=== PATIENT | female | born 1945 | race Hispanic/Latino ===

== ENCOUNTER 2024-09-20 09:05 | Observation (INO) | payer MEDICARE ==
[~2024-09-20] VITALS: Ht 167.6 cm; Wt 92.6 kg
[~2024-09-20 09:05] MED LIST: AMLO-257 PO; ASPI-556 PO; ATOR40TA71 PO
[2024-09-20 09:43] LABS: IMMATURE GRANULOCYTE ABSOLUTE 0.03 K/uL (0-1); NUCLEATED RED BLOOD CELLS 0.0 % (0.0-0.19); PLATELET COUNT (AUTO) 171 K/uL (130-400); RED BLOOD CELL COUNT(AUTO) 4.18 MIL/uL (4.00-5.50); RED CELL DISTRIBUTION WIDTH 14.0 % (11.0-15.5); WHITE BLOOD COUNT (AUTO) 7.7 K/uL (4.8-10.8)
[2024-09-20 10:03] LABS: CREATININE 1.0 mg/dL (0.5-1.0); GLOMERULAR FILTR. RATE CALC 57.0 mL/min (>90); GLUCOSE,RANDOM 186.0 mg/dL (70-105); SODIUM SERUM 143.0 mmol/L (136-145); UREA NITROGEN, BLOOD 22.0 mg/dL (7-18)
[2024-09-20 10:04] LABS: APPEARANCE,URINE TURBID (CLEAR); GLUCOSE, URINE (UA) NEGATIVE (NEGATIVE); LEUKOCYTE ESTERASE ,URINE 500 Leu/uL (NEGATIVE); NITRATE,URINE NEGATIVE (NEGATIVE); OCCULT BLOOD,URINE LARGE (NEGATIVE)
[2024-09-20 10:08] LABS: ASPARTATE AMINOTRANSFERASE 24.0 U/L (10-37); TOTAL PROTEIN, SERUM 7.8 g/dL (6.0-8.3)
[2024-09-20 10:11] LABS: ADD UA MICROSCOPIC YES
[2024-09-20 10:18] LABS: NON-SQUAMOUS EPITHELIAL CELL 3 /HPF (0-2); SQUAMOUS EPITHELIAL CELL,UR MOD /HPF (0-2); WBC CLUMP MANY /HPF (0-1)
--- NOTE | 2024-09-20 10:44 | NUR ---
APTT 104.8,HEPARIN ON HOLD FOR AN HOUR
--- NOTE | 2024-09-20 11:13 | HMCIMG ---
EXAM: CT Abdomen and Pelvis with IV contrast CLINICAL HISTORY: hematuria TECHNIQUE: Axial computed tomography images of the abdomen and pelvis with intravenous contrast. CT scan performed according to ALARA. Automated exposure control used during exam. CONTRAST: with intravenous contrast. COMPARISON: None provided. FINDINGS: LUNG BASES: The lung bases appear clear. No pleural effusions are seen. Atherosclerosis of the coronary arteries. LIVER: Unremarkable. GALLBLADDER AND BILE DUCTS: The gallbladder appears within normal limits. No radiopaque gallstones are seen. No biliary ductal dilatation is evident. PANCREAS: Unremarkable. SPLEEN: Unremarkable. ADRENAL GLANDS: Unremarkable. KIDNEYS, URETERS, AND BLADDER: The kidneys appear within normal limits. There is no hydronephrosis or hydroureter. Specifically no renal calculi. The bladder is underdistended without an obvious abnormality. STOMACH AND BOWEL: Unremarkable appearance of the stomach and bowel. No evidence of bowel obstruction. No evidence suggesting enteritis or colitis. APPENDIX: No evidence of acute appendicitis on CT examination. PERITONEUM: No free fluid. No free air. LYMPH NODES: No lymphadenopathy is evident. REPRODUCTIVE: The uterus is surgically absent. VASCULATURE: No evidence of abdominal aortic aneurysm. BONES: No aggressive appearing osseous lesion. No acute osseous pathology evident. IMPRESSION: No acute intra-abdominal or pelvic abnormality. No renal calculi or hydronephrosis. /[place]
--- NOTE | 2024-09-20 11:54 | ERN ---
ED Note History of Present Illness Stated Complaint: DYSURIA, HEMATURIA Chief Complaint: Painful Urination Time Seen by MD: 09:18 Dictation: 79-year-old female presenting to the emergency department with dysuria blood in urine not feeling well over the past few days. No fever no chest pain. But reports burning with urination. Allergies: Coded Allergies: Penicillins (Unverified Allergy, Unknown, HIVES, 08/02/16) Home Meds Reported Medications Aspirin (Aspir 81) 81 Mg Tablet.dr, 81 MG PO AM, TAB 08/06/16 Amlodipine Besylate (Amlodipine Besylate) 5 Mg Tablet, 5 MG PO AM, TAB 08/06/16 Atorvastatin Calcium (Atorvastatin Calcium) 40 Mg Tablet, 40 MG PO AM, TAB 08/06/16 Past Medical History Past Medical History: Diabetes-Type II, High Cholesterol, Heart Disease, Hypertension, Stroke Additional Past Medical Hx: THYROID Surgical History: CABG Review of System Dictation Constitutional: Negative for fever,chills, and weight loss Eyes: Negative for injury, pain,redness, and discharge ENT: Negative for injury,pain or swelling Cardiovascular: Negative for chest pain, palpitations, and edema Respiratory: Negative for shortness of breath, cough, and wheezing, Abdomen/GI: Negative for abdominal pain, nausea, vomiting, diarrhea, and constipation Back: Negative for injury and pain : Per HPI MS/Extremity: Negative for injury and deformity Skin: Negative for rash, and discoloration Neuro: Negative for headache, weakness, numbness, tingling, and seizure Initial Vital Sign VS Vital Signs Date Time Temp Pulse Resp B/P (MAP) Pulse Ox O2 Delivery O2 Flow Rate FiO2 09/20/24 09:07 98.2 81 16 120/44 96 Room Air 0 09/20/24 09:20 21 Physical Exam Dictation General: awake, alert, NAD Head/Face: Normocephalic, atraumatic Eyes: PERRL, EOMI, vision at baseline ENT: oral cavity clear, TMs clear, no signs of infection Neck: Trachea midline, supple, no nuchal rigidity Cardiovascular: RRR, normal S1/S2, No MRGs, no JVD Respiratory: CTAB, no respiratory distress, No rales or wheezes Abdomen: Soft, non-tender, non-distended, normal bowel sounds, no guarding or rebound. Skin: Warm, dry, normal turgor, no rash MS/Extremity: Pulses equal, no cyanosis, neurovascular intact, FROM Neuro: COAx4, GCS 15, strength 5/5, CN 2-12 intact, normal cerebellar exam, normal gait, Psych: Normal behavior, mood, and affect normal Results (Laboratory/Radiology) Laboratory/Radiology Laboratory Tests Test 09/20/24 09:25 09/20/24 09:31 Urine Color LIGHT-ORANGE (YELLOW) Urine Appearance TURBID (CLEAR) Urine pH 6.0 (5.0-8.0) Urine Specific [place] 1.024 (1.001-1.031) Urine Protein 100 mg/dL (NEGATIVE) H Urine Glucose (UA) NEGATIVE mg/dL (NEGATIVE) Urine Ketones NEGATIVE mg/dL (NEGATIVE) Urine Occult Blood LARGE (NEGATIVE) H Urine Nitrate NEGATIVE (NEGATIVE) Urine Bilirubin NEGATIVE mg/dL (NEGATIVE) Urine Urobilinogen 0.2 mg/dL (0.2-1.0) Urine Leukocyte Esterase 500 [place]/uL (NEGATIVE) H Urine RBC TNTC /HPF (0-1) H Urine WBC TNTC /HPF (0-1) H Urine WBC Clumps (Auto) MANY /HPF (0-1) Urine Squamous Epithelial Cells MOD /HPF (0-2) Urine Non-Squamous Epithelial Cells 3 /HPF (0-2) Urine Bacteria Rare /HPF (None Seen) White Blood Count 7.7 K/uL (4.8-10.8) Red Blood Count 4.18 MIL/uL (4.00-5.50) Hemoglobin 12.7 g/dL (12.0-16.0) Hematocrit 39.6 % (36-48) Mean Corpuscular Volume 94.7 fL (79-99) Mean Corpuscular Hemoglobin 30.4 pg (27.0-33.0) Mean Corpuscular Hemoglobin Concent 32.1 g/dL (32.0-36.0) Red Cell Distribution Width 14.0 % (11.0-15.5) Platelet Count 171 K/uL (130-400) Mean Platelet Volume 11.4 fL (7.5-10.5) H Immature Granulocyte % (Auto) 0.4 % (0-1) Neutrophils (%) (Auto) 70.3 % (40.0-77.0) Lymphocytes (%) (Auto) 20.8 % (21.0-51.0) L Monocytes (%) (Auto) 5.5 % (3.0-13.0) Eosinophils (%) (Auto) 2.3 % (0.0-8.0) Basophils (%) (Auto) 0.7 % (0.0-5.0) Neutrophils # (Auto) 5.4 K/uL (1.8-7.7) Lymphocytes # (Auto) 1.6 K/uL (1.0-4.8) Monocytes # (Auto) 0.4 K/uL (0.1-1.0) Eosinophils # (Auto) 0.18 K/uL (0.00-0.70) Basophils # (Auto) 0.05 K/uL (0.00-0.20) Absolute Immature Granulocyte (auto 0.03 K/uL (0-1) Nucleated Red Blood Cells 0.0 % (0.0-0.19) Sodium Level 143 mmol/L (136-145) Potassium Level 3.9 mmol/L (3.5-5.1) Chloride Level 105 mmol/L (101-111) Carbon Dioxide Level 28 mmol/L (21-32) Blood Urea Nitrogen 22 mg/dL (7-18) H Creatinine 1.0 mg/dL (0.5-1.0) Glomerular Filtration Rate Calc 57 mL/min (>90) Random Glucose 186 mg/dL (70-105) H Lactic Acid Level 1.8 mmol/L (0.8-2.5) Total Calcium 9.7 mg/dL (8.5-10.1) Total Bilirubin 0.5 mg/dL (0.2-1.0) Direct Bilirubin 0.1 mg/dL (0.0-0.3) Aspartate Amino Transf (AST/SGOT) 24 U/L (10-37) Alanine Aminotransferase (ALT/SGPT) 32 U/L (12-78) Alkaline Phosphatase 113 U/L (50-136) Total Protein 7.8 g/dL (6.0-8.3) Albumin 3.9 g/dL (3.5-5.0) Labs Reviewed?: Yes ED Course ED Course Orders Procedure Category Date Status Time Basic Metabolic Panel LAB 09/20/24 Complete 09:18 Blood Cult SAVITA 09/20/24 In Process 09:18 Cbc With Differential LAB 09/20/24 Complete 09:18 Hepatic Function Panel LAB 09/20/24 Complete 09:18 Lactic Acid LAB 09/20/24 Complete 09:18 Urinalysis Profile LAB 09/20/24 Complete 09:18 Ct Abd/Pel Wo Con CT 09/20/24 Resulted Renal/Appy 09:18 Culture Urine SAVITA 09/20/24 In Process 10:11 Vital Signs Date Time Temp Pulse Resp B/P (MAP) Pulse Ox O2 Delivery O2 Flow Rate FiO2 09/20/24 11:23 97.9 69 16 108/65 98 Room Air* 0 21 09/20/24 10:20 97.9 71 16 136/73 98 Room Air* 0 21 09/20/24 09:20 98.2 81 16 120/44 96 Room Air* 0 21 09/20/24 09:07 98.2 81 16 120/44 96 Room Air 0 Medical Decision Making MDM MDM: Differential diagnosis: Rationale: Tests considered and ordered secondary to shared decision making include: labs, ECG and radiology Previous outside records reviewed: Old ER visits. Risk of complication and/or morbidity or mortality of patient management: None Medications-Per medication reconciliation Need for hospitalization: Patient does meet criteria for hospitalization. Need for emergency major/minor surgery: No There are no social concerns with this patient. Prescription drug management Prescriptions will include symptomatic care Patient's prior external medical records from other ER visits were reviewed by me as indicated. Prior testing and results from previous visits were reviewed. Prior tests were taken into account with medical decision making and resource utilization, independent historian/historians were used to obtain complete medical history. I independently interpreted the test that were performed, results were reviewed by me and considered findings on radiology if ordered. Medical management and examination interpretation discussions were had by me with other qualified healthcare professionals as indicated for the patient's care. 79-year-old female with UTI complex, admitting to Medicine for further care and evaluation. DX & DISP Disposition: Inpatient Departure Impression: Primary Impression: Complicated UTI (urinary tract infection) Condition: Stable Referrals: YASMIN VÁZQUEZ MD (PCP) NORBERTO HOWARD MD Sep 20, 2024 11:54
[2024-09-20] MEDS ORDERED: MAG/ALUM/SIMETH 30 ML UDCUP PO PRN (13:00)
[2024-09-20] MEDS: PHENAZOpyridine HCL 200 MG TAB 200 MG TABLET PO ONE (14:00)
--- NOTE | 2024-09-20 14:00 | NUR ---
FAMILY WILL BRING PT'S MEDICATIONS
--- NOTE | 2024-09-20 14:20 | NUR ---
REPORT GIVEN TO ARRON
[2024-09-20 14:45] VITALS: BP 146/84; PULSE 68; RESP 18; TEMP 97.7
--- NOTE | 2024-09-20 14:50 | NUR ---
RECEIVED PATIENT AAOX3 , ORIENTED TO ROOM AND USE OF CALL REDDY, ROOM AIR NO COMPLAINTS RESP REGULAR AND UNLABORED.NO EDEMA TO LOWER EXTREMITIES. PATIENT STATES SHE DOES NOT REQUIRE AN ASSIST DEVICE TO AMBULATE.
--- NOTE | 2024-09-20 15:32 | HP ---
[facility] HISTORY & PHYSICAL Date Patient Seen: Sep 20, 2024 Time of Visit: 15:13 Supervising Physician: Davis Mcbride MD Primary Care Physician: Renzo Benavides MD Outpatient Specialists: [ ] Inpatient Consults: Attending Physician: Davis Mcbride MD PROBLEM LIST: Acute cystitis, POA Dysuria, POA Hyperlipidemia, POA Hyperglycemia in the presence of T2DM, POA A1c 6.6 Hypothyroidism Essential hypertension Remote history of a stroke Coronary artery disease status post CABG Obesity BMI of 33.1 HPI: This is an obese 79-year-old female with a past medical history of hypothyroidism, type 2 diabetes mellitus, hyperlipidemia, coronary artery disease status post CABG, essential hypertension and a previous stroke who presented to the ED for complaints dysuria and urgency that started three days ago. Patient reports initially it was light discomfort and thought it would go away. She then reported today while driving her family member from [place] to [place] she had to stop 3 times because of the urgency and dysuria to go to restroom. On arrival to the ED patient has a temperature of 98.2 heart rate of respiratory rate of 16 blood pressure 120/44 saturating 96% on room air. Laboratory was unremarkable except for BUN22 glucose of 186 mg/dL A1c of 6.6 and procalcitonin less than 0.05. Urinalysis did show a protein of 100 occult blood of large leukocyte esterase 500 RBCs TNTC WBCs TNTC. Consistent with acute cystitis. CT of the abdomen and pelvis was done without contrast to rule out complicated cystitis impression: No acute intra-abdominal or pelvic abnormality. No renal calculi or hydronephrosis. Patient is awake alert and oriented x3 on assessment. She denies any other comp laints other than dysuria and urgency. Patient does have extensive cardiac history in reports her family members we will bring her home medications so we can resume here while in the hospital. Otherwise inform her plan of care is to start her on Rocephin IV antibiotics to treat acute cystitis and DC with the in the next24 hours. Patient verbalized understanding and agreement. PAST MEDICAL HX: see above PAST SURGICAL HX: noncontributory SOCIAL HISTORY: No tobacco, ETOH, or illicit drug use Coded Allergies: Penicillins (Unverified Allergy, Unknown, HIVES, 08/02/16) REVIEW OF SYSTEMS: General: No malaise or fever. Neurological: No fainting episodes or seizures. HEENT: No nasal congestion or nasal secretion. Respiratory: No cough, shortness of breath, or wheezing Cardiac: No chest pain or palpitations. Gastrointestinal: No vomiting or diarrhea. Genitourinary:+ dysuria and urgency Skin: No rashes or lesions. Hematological: No bruises or bleeding. Musculoskeletal: No joint pains or arthralgias. Psychiatric: No depression or panic attacks. PHYSICAL EXAM: GENERAL: alert, weak, awake oriented x 3 HEENT: EOMI, Sclera non icteric, dry mucosa NECK: Supple, no JVD, trachea midline LUNGS: Clear breath sounds bilaterally. No wheezes HEART: Regular rate and rhythm. Normal S1 and S2, without murmurs ABD: Abdomen soft, nontender. Bowel sounds present EXT: No clubbing cyanosis or edema NEURO: Alert and oriented to person, follows commands Vital Signs (last 8hr) Date Time Temp Pulse Resp B/P (MAP) Pulse Ox O2 Delivery O2 Flow Rate FiO2 09/20/24 14:45 97.7 68 18 146/84 98 Room Air 09/20/24 14:27 98.1 70 16 141/59 98 Room Air* 0 09/20/24 11:23 97.9 69 16 108/65 98 Room Air* 0 09/20/24 10:20 97.9 71 16 136/73 98 Room Air* 0 09/20/24 09:20 98.2 81 16 120/44 96 Room Air* 0 09/20/24 09:07 98.2 81 16 120/44 96 Room Air 0 LABS: Hematology Labs: Test 09/20/24 09:31 Range/Units White Blood Count 7.7 4.8-10.8 K/uL Red Blood Count 4.18 4.00-5.50 MIL/uL Hemoglobin 12.7 12.0-16.0 g/dL Hematocrit 39.6 36-48 % Mean Corpuscular Volume 94.7 79-99 fL Mean Corpuscular Hemoglobin 30.4 27.0-33.0 pg Mean Corpuscular Hemoglobin Concent 32.1 32.0-36.0 g/dL Red Cell Distribution Width 14.0 11.0-15.5 % Platelet Count 171 130-400 K/uL Mean Platelet Volume 11.4 H 7.5-10.5 fL Immature Granulocyte % (Auto) 0.4 0-1 % Neutrophils (%) (Auto) 70.3 40.0-77.0 % Lymphocytes (%) (Auto) 20.8 L 21.0-51.0 % Monocytes (%) (Auto) 5.5 3.0-13.0 % Eosinophils (%) (Auto) 2.3 0.0-8.0 % Basophils (%) (Auto) 0.7 0.0-5.0 % Neutrophils # (Auto) 5.4 1.8-7.7 K/uL Lymphocytes # (Auto) 1.6 1.0-4.8 K/uL Monocytes # (Auto) 0.4 0.1-1.0 K/uL Eosinophils # (Auto) 0.18 0.00-0.70 K/uL Basophils # (Auto) 0.05 0.00-0.20 K/uL Absolute Immature Granulocyte (auto 0.03 0-1 K/uL Nucleated Red Blood Cells 0.0 0.0-0.19 % Chemistry Labs: Test 09/20/24 09:31 Range/Units Sodium Level 143 136-145 mmol/L Potassium Level 3.9 3.5-5.1 mmol/L Chloride Level 105 101-111 mmol/L Carbon Dioxide Level 28 21-32 mmol/L Blood Urea Nitrogen 22 H 7-18 mg/dL Creatinine 1.0 0.5-1.0 mg/dL Glomerular Filtration Rate Calc 57 >90 mL/min Random Glucose 186 H 70-105 mg/dL Hemoglobin A1c 6.6 H 4.0-6.0 % Estimated Average Glucose (eAG) 143 H 70-126 mg/dL Lactic Acid Level 1.8 0.8-2.5 mmol/L Total Calcium 9.7 8.5-10.1 mg/dL Total Bilirubin 0.5 0.2-1.0 mg/dL Direct Bilirubin 0.1 0.0-0.3 mg/dL Aspartate Amino Transf (AST/SGOT) 24 10-37 U/L Alanine Aminotransferase (ALT/SGPT) 32 12-78 U/L Alkaline Phosphatase 113 50-136 U/L Total Protein 7.8 6.0-8.3 g/dL Albumin 3.9 3.5-5.0 g/dL Procalcitonin < 0.05 L 0.05-0.5 ng/mL DIAGNOSTICS / RADIOLOGY RESULTS: [ [facility] [address] [place] [address] IMAGING REPORT Signed PATIENT: DEMETRIS KILLIAN MR#: [id number] : 1945 SEX: F AGE: 79 LOCATION: [facility] ORDER 8 STATUS: REG REPORT#: [id number] SERVICE 7 REASON: hematuria ORDERING PHYSICIAN: NORBERTO HOWARD MD PROCEDURE: ABD PELVWO - CT ABD/PEL WO CON RENAL/APPY EXAM: CT Abdomen and Pelvis with IV contrast CLINICAL HISTORY: hematuria TECHNIQUE: Axial computed tomography images of the abdomen and pelvis with intravenous contrast. CT scan performed according to ALARA. Automated exposure control used during exam. CONTRAST: with intravenous contrast. COMPARISON: None provided. FINDINGS: LUNG BASES: The lung bases appear clear. No pleural effusions are seen. Atherosclerosis of the coronary arteries. LIVER: Unremarkable. GALLBLADDER AND BILE DUCTS: The gallbladder appears within normal limits. No radiopaque gallstones are seen. No biliary ductal dilatation is evident. PANCREAS: Unremarkable. SPLEEN: Unremarkable. ADRENAL GLANDS: Unremarkable. KIDNEYS, URETERS, AND BLADDER: The kidneys appear within normal limits. There is no hydronephrosis or hydroureter. Specifically no renal calculi. The bladder is underdistended without an obvious abnormality. STOMACH AND BOWEL: Unremarkable appearance of the stomach and bowel. No evidence of bowel obstruction. No evidence suggesting enteritis or colitis. APPENDIX: No evidence of acute appendicitis on CT examination. PERITONEUM: No free fluid. No free air. LYMPH NODES: No lymphadenopathy is evident. REPRODUCTIVE: The uterus is surgically absent. VASCULATURE: No evidence of abdominal aortic aneurysm. BONES: No aggressive appearing osseous lesion. No acute osseous pathology evident. IMPRESSION: No acute intra-abdominal or pelvic abnormality. No renal calculi or hydronephrosis. /[place] DICTATED BY: PURA BRADSHAW Jr., MD DATE: 09/20/24 1212 ELECTRONICALLY SIGNED BY: PURA BRADSHAW Jr., MD DATE: 09/20/24 1212 ] PLAN -admit to the medical floor under observation for the next 24hours. -encourage oral-hydration -Pyridium 200 mg p.o. once then q.8 hours p.r.n. -Rocephin1 g q.12 hours IV then DC on Augmentin 875/125 mg p.o. b.i.d. times 5-7 days -urine culture -multimodal pain control -monitor for clinical improvement in the next 24 hours NEURO: Minimize central acting medications as possible. Maintain fall precautions, adequate lighting during the day PULMONARY: Supplemental 02 as needed. Maintain aspiration precautions at all times CARDIOVASCULAR: Follow hemodynamics. Vital signs per facility protocol GI & NUTRITION: Continue with nutritional support. Continue stool softeners and laxatives as needed. KIDNEYS & ELECTROLYTES: Strict monitoring of intake, output and overall fluid balance. Avoid nephrotoxic medications to the extent possible. Medications to be dosed according to renal function. Monitor electrolytes and replace as needed ENDOCRINE: Maintain blood glucose between 100-180 at all times. Hypoglycemia protocol in place INFECTIOUS DISEASE: Trend temperature, WBC and procalcitonin level Follow cultures, deescalate antibiotics as soon as possible. Panculture if new onset fever ONCOLOGY/HEMATOLOGY/COAGULATION: Monitor for s/s of bleeding Monitor hemoglobin, coagulation studies as needed SKIN: Pressure ulcer prevention per facility protocol Specialty mattress ORTHO/REHAB: Continue PT/OT Prophylaxis: Continue GI and DVT prophylaxis Code Status: Full Resuscitation Disposition: TBD Other: Total patient care time exceeds 35 minutes excluding all procedures. ATTESTATION BY PHYSICIAN I have evaluated the patient chart, medical records, and spoke with appropriate staff. I reviewed the documentation, medical decision making, and treatment plan as noted by the mid-level provider above. I agree with the findings and plan of care. Davis Mcbride MD, [place]LLY [facility] [place] Sep 20, 2024 15:32
--- NOTE | 2024-09-20 15:40 | NUR ---
DCP: HOME Pt states that her son Juaquin Fitch [phone] currently lives with her. pt does not have any insecurities with food, snf, and/or utilities. Pt works as a provider. Pt does not have DME, home health, or provider services. PCP is Dr. Renzo Benavides and uses [facility] for any RX needs. At [place] pt will go home and family can assist with transportation. Addendum: 09/20/24 at 1542 by DAGOBERTO SALOMON SS Amended: Links added.
[2024-09-20] MEDS ORDERED: LOSA50TA64 PO (16:24)
[2024-09-20] MEDS ORDERED: ATOR40TA71 PO (16:24)
[2024-09-20] MEDS ORDERED: AEC81 PO (16:24)
[2024-09-20] MEDS ORDERED: HYDR25TA PO (16:24)
[2024-09-20] MEDS ORDERED: METF-444 PO (16:24)
[2024-09-20] MEDS ORDERED: LEVO50TA11 PO (16:24)
[2024-09-20 20:00] VITALS: BP 135/58; PULSE 64; RESP 18; TEMP 98.2
[2024-09-20] MEDS: FAMOTIDINE 20MG TAB PO SCH (20:23)
[2024-09-21] MEDS: PHENAZOpyridine HCL 200 MG TAB 200 MG TABLET PO PRN (00:19)
[2024-09-21 00:29] VITALS: BP 125/46; PULSE 56; RESP 18; TEMP 97.6
[2024-09-21 05:01] VITALS: BP 113/57; PULSE 66; RESP 19; TEMP 98
[2024-09-21 06:30] LABS: IMMATURE GRANULOCYTE ABSOLUTE 0.04 K/uL (0-1); NUCLEATED RED BLOOD CELLS 0.0 % (0.0-0.19); PLATELET COUNT (AUTO) 168 K/uL (130-400); RED BLOOD CELL COUNT(AUTO) 3.85 MIL/uL (4.00-5.50); RED CELL DISTRIBUTION WIDTH 13.9 % (11.0-15.5); WHITE BLOOD COUNT (AUTO) 6.6 K/uL (4.8-10.8)
[2024-09-21 06:55] LABS: ASPARTATE AMINOTRANSFERASE 20.0 U/L (10-37); CREATININE 0.8 mg/dL (0.5-1.0); GLOMERULAR FILTR. RATE CALC 74.0 mL/min (>90); GLUCOSE,RANDOM 128.0 mg/dL (70-105); SODIUM SERUM 143.0 mmol/L (136-145); TOTAL PROTEIN, SERUM 7.3 g/dL (6.0-8.3); UREA NITROGEN, BLOOD 20.0 mg/dL (7-18)
[2024-09-21 08:00] VITALS: O2SAT 95
[2024-09-21 08:27] VITALS: BP 130/62; PULSE 68; RESP 18; TEMP 97.7
[2024-09-21] MEDS: ASPIRIN 81 MG EC TAB PO SCH (08:50)
[2024-09-21 12:02] VITALS: BP 137/66; PULSE 61; RESP 18; TEMP 97.4
[2024-09-21] MEDS ORDERED: LEVO750T68 PO (17:09)
--- NOTE | 2024-09-21 17:10 | DS ---
[facility] DISCHARGE SUMMARY Date Patient Seen: Sep 21, 2024 Time of Visit: 17:10 Supervising Physician: Dr. Radha Nagy Primary Care Physician: Dr. Renzo Benavides MD Outpatient Specialists: [ ] Inpatient Consults: NA PROBLEM LIST: Acute cystitis, POA Dysuria, POA, resolved Hyperlipidemia Hyperglycemia in the presence of T2DM, POA A1c 6.6 Hypothyroidism Essential hypertension Remote history of a stroke Coronary artery disease status post CABG Obesity BMI of 33.1 HPI (per admitting provider): This is an obese 79-year-old female with a past medical history of hypothyroidism, type 2 diabetes mellitus, hyperlipidemia, coronary artery dis ease status post CABG, essential hypertension and a previous stroke who presented to the ED for complaints dysuria and urgency that started three days ago. Patient reports initially it was light discomfort and thought it would go away. She then reported today while driving her family member from [place] to [place] she had to stop 3 times because of the urgency and dysuria to go to restroom. On arrival to the ED patient has a temperature of 98.2 heart rate of respiratory rate of 16 blood pressure 120/44 saturating 96% on room air. Laboratory was unremarkable except for BUN22 glucose of 186 mg/dL A1c of 6.6 and procalcitonin less than 0.05. Urinalysis did show a protein of 100 occult blood of large leukocyte esterase 500 RBCs TNTC WBCs TNTC. Consistent with acute cystitis. CT of the abdomen and pelvis was done without contrast to rule out complicated cystitis impression: No acute intra-abdominal or pelvic abnormality. No renal calculi or hydronephrosis. Patient is awake alert and oriented x3 on assessment. She denies any other complaints other than dysuria and urgency. Patient does have extensive cardiac history in reports her family members we will bring her home medications so we can resume here while in the hospital. Otherwise inform her plan of care is to start her on Rocephin IV antibiotics to treat acute cystitis and DC with the in the next24 hours. Patient verbalized understanding and agreement. HOSPITAL COURSE: Patient was admitted due to dysuria secondary to cystitis. Patient was started on Rocephin. She received a few doses. Today, she denies any dysuria and states she is ready to go home. Urine culture positive for gram negative rods. RX for levaquin sent to pharmacy and advised patient to follow up with PCP in 2-3 days. Denies any chest pain, abdominal pain, nausea or vomiting. Stable for discharge. PROCEDURES: as mentioned above DISCHARGE MEDICATIONS: Pt hemodynamically stable and afebrile at time of discharge. PCP notified of patients admission, hospital course and discharge. New Medications: Levofloxacin (Levaquin 750Mg Tabs) 750 Mg Tablet 750 MG PO DAILY, #5 TAB Continued Medications: Aspirin (Aspirin 81 Mg Ectab) 81 Mg Ectab 81 MG PO DAILY, TAB.EC Atorvastatin Calcium (Atorvastatin Calcium) 40 Mg Tablet 1 TAB PO HS for 30 Days, #30 TAB 0 Refills Hydrochlorothiazide (Hydrochlorothiazide) 25 Mg Tablet 25 MG PO AMNOON, TAB Levothyroxine Sodium (Levothyroxine Sodium) 50 Mcg Tablet 1 TAB PO DAILY for 30 Days, #30 TAB 0 Refills Losartan Potassium (Losartan Potassium) 50 Mg Tablet 1 MG PO DAILYDINNER, TAB Metformin HCl (Metformin HCl) 500 Mg Tablet 500 MG PO AD, TAB Discontinued Medications: Aspirin (Aspir 81) 81 Mg Tablet.dr 81 MG PO AM, TAB PHYSICAL EXAM: GENERAL: alert, weak, awake oriented x 3 HEENT: EOMI, Sclera non icteric, dry mucosa NECK: Supple, no JVD, trachea midline LUNGS: Clear breath sounds bilaterally. No wheezes HEART: Regular rate and rhythm. Normal S1 and S2, without murmurs ABD: Abdomen soft, nontender. Bowel sounds present EXT: No clubbing cyanosis or edema NEURO: AAOX3, follows commands FOLLOW-UP: Follow-up with PCP in 2-3 days RECOMMENDATIONS: See Discharge Instructions This case was seen and discussed with my supervising physician. More than 30 minutes spent on discharge process, including evaluation of the patient, dis cussion with nursing staff, medication reconciliation and follow-up appointments MIRELLA CAI NP Sep 21, 2024 17:10
[2024-09-21 17:23] VITALS: BP 126/54; PULSE 66; RESP 18; TEMP 98.2
--- NOTE | 2024-09-21 17:50 | NUR ---
PATIENT DISCHARGED HOME ID BAND AND IV REMOVED. DISCHARGE INSTRUCTIONS EXPLAINED AND GIVEN TO PATIENT. PATIENT VERBALIZED UNDERSTANDING. BELONGINGS PACKED AND TAKEN BY PATIENT. WHEELED DOWN TO PRIVATE CAR.
== END 2024-09-21 17:50 | disposition home or self-care (01) ==
LOC: EDH 09:05 → EDHIP 12:31 → 3CH 14:45
PROVIDERS: ADMIT Internal Medicine Critical Care Medicine; ATTEND Internal Medicine Critical Care Medicine
DX: N30.00 Acute cystitis without hematuria (principal); E78.5 Hyperlipidemia, unspecified; E11.65 Type 2 diabetes mellitus with hyperglycemia; E03.9 Hypothyroidism, unspecified; I11.9 Hypertensive heart disease without heart failure; I25.10 Atherosclerotic heart disease of native coronary artery without angina pectoris; E66.9 Obesity, unspecified; Z86.73 Personal history of transient ischemic attack (TIA), and cerebral infarction without residual deficits; Z95.1 Presence of aortocoronary bypass graft; Z68.33 Body mass index [BMI] 33.0-33.9, adult; Z79.899 Other long term (current) drug therapy; Z88.0 Allergy status to penicillin
CPT/HCPCS: 96374; 99284; 83036; 80076; 80048; 85025 ×2; 87040 ×2; 87086 ×2; 87186; 82948 ×5; 83605; 81001; 36415 ×2; 74176; 84145; 96376; 83735; 80053; 97161; 97116; 97530 ×2; G0378 ×29; J0696 ×2